=== PATIENT | female | born 1965 | race Caucasian/White ===

== ENCOUNTER 2025-05-09 15:23 | Emergency (ER) | payer BC, MEDICAID ==
[~2025-05-09] VITALS: Ht 157.5 cm; Wt 85.0 kg
[~2025-05-09 15:23] MED LIST: ALEN35TA52 PO; APIX5TAB PO; ASPI-986 PO; FLUO-413 PO; HYDR200T35 PO; LEVO-65 MT; METR-167 MT; SIMV10TA97 PO; TERB250T88 PO; TIZA4CAP6 PO; TRAM50TA3 PO
[2025-05-09 15:32] VITALS: O2SAT 100
[2025-05-09] MEDS: SODIUM CHLORIDE 0.9% 1,000 ML IV ONE (16:16)
[2025-05-09] MEDS: ONDANSETRON HCL 4MG/2ML INJ IV ONE (16:16)
[2025-05-09] MEDS: KETOROLAC 15MG/ML VIAL IV ONE (16:17)
[2025-05-09] MEDS: FAMOTIDINE 20MG/2ML VIAL IV ONE (16:17)
[2025-05-09 16:21] LABS: BASOPHILS % 0.5 % (0.0-2.0); EOSINOPHILS % 1.2 % (0.0-5.0); HEMATOCRIT. 41.1 % (36.0-48.0); HEMOGLOBIN. 13.7 g/dL (12.0-16.0); LYMPHOCYTES % 20.2 % (20.0-50.0); MEAN PLATELET VOLUME 9.2 fl (7.4-10.4); MONOCYTES % 8.1 % (2.0-8.0); NEUTROPHILS % 70.0 % (40.0-76.0); PLATELET 191 x1000/uL (130-400); RED BLOOD CELL COUNT 4.52 mill/uL (4.2-5.4); RED CELL DISTRIBUTION WIDTH 13.3 % (11.6-14.6)
[2025-05-09 16:34] LABS: CREATININE 0.7 mg/dL (0.6-1.0)
[2025-05-09 16:35] LABS: TROPONIN I HIGH SENSITIVITY < 4 ng/L (3.0-34); UREA NITROGEN BLOOD 10 mg/dL (9-23)
[2025-05-09 16:36] LABS: ASPARTATE AMINOTRANSFERASE 16 IU/L (<34)
[2025-05-09 16:37] LABS: BILIRUBIN DIRECT 0.1 mg/dL (<=3.0); BILIRUBIN TOTAL 0.4 mg/dL (0.1-1.0); PROTEIN TOTAL 6.9 g/dL (6.0-8.3)
[2025-05-09 16:42] LABS: CLARITY URINE CLOUDY (CLEAR); COLOR URINE YELLOW (YELLOW); GLUCOSE URINE NEGATIVE (NEGATIVE); KETONES URINE NEGATIVE (NEGATIVE); LEUKOCYTE ESTERASE URINE 3+ (NEGATIVE); NITRITE URINE NEGATIVE (NEGATIVE); OCCULT BLOOD URINE NEGATIVE (NEGATIVE); PH URINE 7.5 (4.5-8.0); PROTEIN URINE NEGATIVE (NEGATIVE); SPECIFIC GRAVITY URINE 1.008 (1.005-1.030); UROBILINOGEN URINE 1.0 E.U./dL (0.2-1.0)
[2025-05-09 16:46] LABS: *AMPHETAMINES SCREEN URINE NEGATIVE (NEGATIVE); *BARBITURATES SCREEN URINE NEGATIVE (NEGATIVE); *BENZODIAZEPINES SCREEN URINE NEGATIVE (NEGATIVE); *COCAINE SCREEN URINE NEGATIVE (NEGATIVE); CANNABINOID URINE SCREEN NEGATIVE (NEGATIVE); ECSTASY MDMA SCREEN URINE NEGATIVE (NEGATIVE); METHADONE URINE SCREEN NEGATIVE (NEGATIVE); OPIATES URINE SCREEN NEGATIVE (NEGATIVE); PHENCYCLIDINE URINE SCREEN NEGATIVE (NEGATIVE)
[2025-05-09 16:56] LABS: BACTERIA URINE 1+; RBC URINE 0-2 /hpf (0-2); SQUAMOUS EPITHELIAL CELL URINE FEW /lpf (RARE/1+); WBC URINE 25-50 /hpf (0-2); YEAST URINE NONE SEEN
[2025-05-09] MEDS ORDERED: NITR-87 MT (18:14)
[2025-05-09] MEDS ORDERED: ONDA-239 PO (18:14)
[2025-05-09 18:36] VITALS: BP 147/69; PULSE 69; RESP 12; TEMP 36.8; O2SAT 99
== END 2025-05-09 18:47 | disposition home or self-care (01) ==
LOC: ER 15:23
DX: N39.0 Urinary tract infection, site not specified (principal); R11.2 Nausea with vomiting, unspecified; I10 Essential (primary) hypertension; F32.A Depression, unspecified; M19.90 Unspecified osteoarthritis, unspecified site; Z79.899 Other long term (current) drug therapy; Z79.82 Long term (current) use of aspirin; Z79.01 Long term (current) use of anticoagulants; Z90.710 Acquired absence of both cervix and uterus; Z86.718 Personal history of other venous thrombosis and embolism
CPT/HCPCS: 80076; 80305; 80048; 81003; 80320; 83690; 85025; 87086; 84484; 36415; 96361; 96374; 96375; 99285; J1308; J1885; J2405; J7030; A4606; G0480